=== PATIENT | male | born 1950 | race Hispanic/Latino ===

== ENCOUNTER → 2018-05-31 | Outpatient (CLI) | payer OTHER, MEDICARE | END | disposition home or self-care (01) | LOC: RAH 15:32 | PROVIDERS: ATTEND Urology | DX: L72.0 Epidermal cyst (principal) | CPT/HCPCS: 76870 ==

== ENCOUNTER → 2019-08-21 | Outpatient (CLI) | payer OTHER, MEDICARE | END | disposition home or self-care (01) | LOC: RAH 13:40 | PROVIDERS: ATTEND Urology | DX: K57.90 Diverticulosis of intestine, part unspecified, without perforation or abscess without bleeding (principal); N20.0 Calculus of kidney; I70.0 Atherosclerosis of aorta | CPT/HCPCS: 74176 ==

== ENCOUNTER 2021-02-16 15:55 | Inpatient (IN) | payer OTHER, MEDICARE ==
[~2021-02-16] VITALS: Ht 160 cm; Wt 80.7 kg
[2021-02-16] MEDS ORDERED: 0.9%NACL 1000ML 1,638 ML IV ONE (16:30)
[2021-02-16 16:37] LABS: APPEARANCE,URINE Turbid (CLEAR); BILIRUBIN,URINE Negative (NEGATIVE); COLOR,URINE Dark Yellow (YELLOW); GLUCOSE, URINE (UA) Negative (NEGATIVE); KETONES,URINE Trace mg/dL (NEGATIVE); LEUKOCYTE ESTERASE ,URINE Large (NEGATIVE); NITRATE,URINE Negative (NEGATIVE); OCCULT BLOOD,URINE Moderate (NEGATIVE); PROTEIN,URINE POS 2+ mg/dL (NEGATIVE)
[2021-02-16 16:38] LABS: BASOPHILS % (AUTO) 0.2 % (0.0-5.0); EOSINOPHILS % (AUTO) 0.1 % (0.0-8.0); HEMATOCRIT 31.6 % (42-54); LYMPHOCYTES % (AUTO) 1.3 % (21.0-51.0); MEAN CORPUSCULAR HEMOGLOBIN 31.6 pg (27.0-33.0); MEAN CORPUSCULAR VOLUME 98.8 fL (79-99); PLATELET COUNT (AUTO) 66 K/uL (130-400); RED CELL DISTRIBUTION WIDTH 15.3 % (11.0-15.5); WHITE BLOOD COUNT (AUTO) 19.2 K/uL (4.8-10.8)
[2021-02-16 16:50] LABS: BACTERIA,URINE Moderate /HPF (None Seen); MUCUS,URINE Few LPF (None Seen); SQUAMOUS EPITHELIAL CELL,UR Few /HPF (0-2); WBC,URINE 26-50 /HPF (0-1)
[2021-02-16 16:52] LABS: CREATININE 3.3 mg/dL (0.5-1.5); POTASSIUM 5.4 mmol/L (3.5-5.1)
[2021-02-16 16:56] LABS: ALBUMIN 2.7 g/dL (3.5-5.0); BILIRUBIN,TOTAL 0.4 mg/dL (0.2-1.0); TOTAL PROTEIN, SERUM 6.2 g/dL (6.0-8.3)
[2021-02-16] MEDS ORDERED: CEFEPIME HCL 1 GM VIAL IVP SCH ×2 (17:00→17:30)
[2021-02-16] MEDS ORDERED: LINEZOLID 600 MG/ISO-OSM 300 ML IV SCH ×2 (17:00→17:30)
[2021-02-16 17:08] LABS: B-TYPE NATRIURETIC PEPTIDE 935 pg/mL (0-100)
[2021-02-16 17:19] LABS: CRP QUANTITATIVE 241.3 mg/L (0.00-9.0)
[2021-02-16] MEDS ORDERED: PHARMACY COMMUNICATION MISC SCH (17:30)
[2021-02-16] MEDS ORDERED: ACETAMINOPHEN 325 MG TAB PO PRN (17:30)
[2021-02-16] MEDS ORDERED: ONDANSETRON 4MG INJ IVP PRN (17:30)
[2021-02-16] MEDS ORDERED: MYCOPHENOLATE PO (18:02)
[2021-02-16] MEDS ORDERED: INSU100I21 SQ (18:02)
[2021-02-16] MEDS ORDERED: MULT-1203 PO (18:02)
[2021-02-16] MEDS ORDERED: CALC-190 PO (18:02)
[2021-02-16] MEDS ORDERED: ALLO300T2 PO (18:02)
[2021-02-16] MEDS ORDERED: MONT-39 PO (18:02)
[2021-02-16] MEDS ORDERED: DICL35CA3 PO (18:02)
[2021-02-16] MEDS ORDERED: LOSA25TA41 PO (18:02)
[2021-02-16] MEDS ORDERED: TACR1GRA PO ×2 (18:02)
[2021-02-16] MEDS ORDERED: AMLO5TAB5 PO (18:02)
[2021-02-16] MEDS ORDERED: PANT40TA54 PO (18:02)
[2021-02-16] MEDS ORDERED: ASPI-1197 PO (18:02)
[2021-02-16] MEDS ORDERED: ROSU10TA22 PO (18:02)
[2021-02-16] MEDS ORDERED: FOLI1 PO (18:02)
[2021-02-16] MEDS ORDERED: ATOV750O2 PO (18:02)
[2021-02-16] MEDS ORDERED: PRED5TAB PO (18:02)
[2021-02-16] MEDS ORDERED: METO50TA18 PO (18:02)
[2021-02-16] MEDS ORDERED: OXYC10TA48 PO (18:02)
[2021-02-16] MEDS: FAMOTIDINE 20MG VIAL IV SCH (18:10)
[2021-02-16] MEDS: 0.9%NACL 1000ML 1,000 ML IV SCH (18:10)
[2021-02-16] MEDS: MEROPENEM 1 GM VIAL IVP SCH (18:22)
[2021-02-16] MEDS ORDERED: GLUCAGON 1MG KIT 1 MG ML IM PRN (18:30)
[2021-02-16] MEDS ORDERED: DEXTROSE 50%-WATER 50 ML DISP.SYRIN IV PRN (18:30)
[2021-02-16] MEDS ORDERED: KAYEXALATE 15GM/60ML PO ONE (18:30)
[2021-02-16] MEDS ORDERED: KAYEXALATE 15GM/60ML ONE (20:08)
[2021-02-16] MEDS: INSULIN HUMULIN R 100 UNIT/ML 3ML SQ SCH (20:38)
[2021-02-16 21:50] VITALS: BP 141/67
[2021-02-17] VITALS: BP 156/76
[2021-02-17] MEDS: MEROPENEM 1 GM VIAL IVP SCH ×3 (03:12→17:16)
[2021-02-17] MEDS: 0.9%NACL 1000ML 1,000 ML IV SCH ×3 (03:12→11:58)
[2021-02-17 04:00] VITALS: BP 146/77
[2021-02-17 04:23] LABS: BASOPHILS % (AUTO) 0.3 % (0.0-5.0); EOSINOPHILS % (AUTO) 0.1 % (0.0-8.0); HEMATOCRIT 31.8 % (42-54); LYMPHOCYTES % (AUTO) 2.1 % (21.0-51.0); MEAN CORPUSCULAR HEMOGLOBIN 32.1 pg (27.0-33.0); MEAN CORPUSCULAR HGB CONC 31.4 g/dL (32.0-36.0); MEAN CORPUSCULAR VOLUME 101.9 fL (79-99); MONOCYTES % (AUTO) 4.7 % (3.0-13.0); NEUTROPHILS % (AUTO) 90.5 % (40.0-77.0); PLATELET COUNT (AUTO) 59 K/uL (130-400); RED BLOOD CELL COUNT(AUTO) 3.12 MIL/uL (4.50-6.20); RED CELL DISTRIBUTION WIDTH 15.2 % (11.0-15.5); WHITE BLOOD COUNT (AUTO) 15.9 K/uL (4.8-10.8)
[2021-02-17 04:37] LABS: ALBUMIN 2.4 g/dL (3.5-5.0); BILIRUBIN,TOTAL 0.3 mg/dL (0.2-1.0); CREATININE 2.5 mg/dL (0.5-1.5)
[2021-02-17] MEDS: INSULIN HUMULIN R 100 UNIT/ML 3ML SQ SCH ×4 (07:30→21:00)
[2021-02-17 08:49] VITALS: BP 168/79
[2021-02-17] MEDS: ENOXAPARIN SODIUM 30 MG/0.3 ML SQ SCH (09:00)
[2021-02-17] MEDS ORDERED: [UNRECOGNIZED DRUG - OTHER] PO SCH (09:00)
[2021-02-17] MEDS ORDERED: LEVOFLOXACIN 750 MG/D5W 150 ML 150 ML IV SCH (09:00)
[2021-02-17] MEDS: FAMOTIDINE 20MG VIAL IV SCH (09:11)
[2021-02-17] MEDS: TACROLIMUS 1 MG CAPSULE PO SCH (09:11)
[2021-02-17] MEDS: MYCOPHENOLATE MOFETIL 250 MG CAPSULE PO SCH ×2 (09:11→21:12)
[2021-02-17] MEDS ORDERED: TAMSULOSIN HCL 0.4 MG CAP.ER.24H PO SCH (09:30)
[2021-02-17] MEDS ORDERED: PREDNISONE 5 MG TABLET PO SCH (09:30)
[2021-02-17] MEDS: TAMSULOSIN HCL 0.4 MG CAP.ER.24H PO SCH (11:54)
[2021-02-17 12:25] VITALS: BP 177/83
[2021-02-17 15:41] VITALS: BP 182/74
[2021-02-17] MEDS: DOXYCYCLINE 100MG+NS 250ML IV SCH (18:34)
[2021-02-17] MEDS: 0.9% NACL 250ML IVPB SCH (18:35)
[2021-02-17 20:00] VITALS: BP 151/82
[2021-02-17] MEDS ORDERED: TACROLIMUS 1.5 MG PO SCH (21:00)
[2021-02-17] MEDS: DEXAMETHASONE SOD PHOSPHATE 4 MG/ML 1ML VIAL IVP SCH (21:11)
[2021-02-17] MEDS: BACLOFEN 10 MG TABLET PO SCH (21:11)
[2021-02-17] MEDS: GABAPENTIN 100 MG CAPSULE PO SCH (21:12)
[2021-02-17] MEDS: METOPROLOL TARTRATE 50 MG TAB PO SCH (21:12)
[2021-02-17] MEDS: TACROLIMUS 0.5 MG CAPSULE PO SCH (21:18)
[2021-02-17] MEDS: OXYCODONE HCL 5 MG TAB PO PRN (21:27)
[2021-02-18] VITALS: BP 129/78
[2021-02-18] MEDS: MEROPENEM 1 GM VIAL IVP SCH ×2 (03:20→10:01)
[2021-02-18 04:00] VITALS: BP 129/58
[2021-02-18 05:22] LABS: BASOPHILS % (AUTO) 0.1 % (0.0-5.0); HEMATOCRIT 34.3 % (42-54); LYMPHOCYTES % (AUTO) 3.7 % (21.0-51.0); MEAN CORPUSCULAR HEMOGLOBIN 31.8 pg (27.0-33.0); MEAN CORPUSCULAR HGB CONC 32.4 g/dL (32.0-36.0); MEAN CORPUSCULAR VOLUME 98.3 fL (79-99); MONOCYTES % (AUTO) 3.7 % (3.0-13.0); PLATELET COUNT (AUTO) 66 K/uL (130-400); RED BLOOD CELL COUNT(AUTO) 3.49 MIL/uL (4.50-6.20); RED CELL DISTRIBUTION WIDTH 15.2 % (11.0-15.5); WHITE BLOOD COUNT (AUTO) 8.5 K/uL (4.8-10.8)
[2021-02-18 05:38] LABS: ALBUMIN 2.6 g/dL (3.5-5.0); BILIRUBIN,TOTAL 0.5 mg/dL (0.2-1.0); CREATININE 2.2 mg/dL (0.5-1.5); POTASSIUM 5.5 mmol/L (3.5-5.1); TOTAL PROTEIN, SERUM 6.7 g/dL (6.0-8.3)
[2021-02-18] MEDS: 0.9% NACL 250ML IVPB SCH ×2 (06:32→17:09)
[2021-02-18] MEDS: DOXYCYCLINE 100MG+NS 250ML IV SCH (06:32)
[2021-02-18] MEDS: INSULIN HUMULIN R 100 UNIT/ML 3ML SQ SCH ×4 (06:54→20:59)
[2021-02-18 07:30] VITALS: BP 161/78
[2021-02-18] MEDS: DEXAMETHASONE SOD PHOSPHATE 4 MG/ML 1ML VIAL IVP SCH ×2 (10:01→13:05)
[2021-02-18] MEDS: ENOXAPARIN SODIUM 30 MG/0.3 ML SQ SCH (10:01)
[2021-02-18] MEDS: ASPIRIN 81MG CHEW TAB PO SCH (10:02)
[2021-02-18] MEDS: MYCOPHENOLATE MOFETIL 250 MG CAPSULE PO SCH ×2 (10:02→21:02)
[2021-02-18] MEDS: TAMSULOSIN HCL 0.4 MG CAP.ER.24H PO SCH (10:02)
[2021-02-18] MEDS: FAMOTIDINE 20MG VIAL IV SCH (10:02)
[2021-02-18] MEDS: AMLODIPINE 5 MG TAB PO SCH (10:04)
[2021-02-18] MEDS: BACLOFEN 10 MG TABLET PO SCH ×3 (10:04→21:03)
[2021-02-18] MEDS: TACROLIMUS 1 MG CAPSULE PO SCH (10:04)
[2021-02-18] MEDS: ALLOPURINOL 300 MG TABLET PO SCH (10:05)
[2021-02-18] MEDS: METOPROLOL TARTRATE 50 MG TAB PO SCH ×2 (10:05→21:02)
[2021-02-18] MEDS: LIDOCAINE 5% TOPICAL PATCH TP SCH (10:05)
[2021-02-18] MEDS: GABAPENTIN 100 MG CAPSULE PO SCH ×2 (10:05→21:02)
[2021-02-18 11:00] VITALS: BP 162/80
[2021-02-18] MEDS ORDERED: CEPH500C2 PO (13:29)
[2021-02-18] MEDS ORDERED: CEFTRIAXONE 2GM VIAL IVP ONE (13:30)
[2021-02-18 16:00] VITALS: BP 158/79
[2021-02-18] MEDS: CEFTRIAXONE 2GM VIAL IVP SCH (17:11)
[2021-02-18 20:00] VITALS: BP 176/88
[2021-02-18] MEDS: TACROLIMUS 0.5 MG CAPSULE PO SCH (21:01)
[2021-02-18] MEDS: OXYCODONE HCL 5 MG TAB PO PRN (22:31)
[2021-02-18] MEDS ORDERED: KAYEXALATE 15GM/60ML ONE (23:54)
[2021-02-19] VITALS: BP 141/76
[2021-02-19] MEDS ORDERED: KAYEXALATE 15GM/60ML PO ONE ×2
[2021-02-19 04:00] VITALS: BP 129/67
[2021-02-19 04:30] LABS: BASOPHILS % (AUTO) 0.3 % (0.0-5.0); HEMATOCRIT 31.9 % (42-54); LYMPHOCYTES % (AUTO) 3.4 % (21.0-51.0); MEAN CORPUSCULAR HEMOGLOBIN 31.3 pg (27.0-33.0); MEAN CORPUSCULAR HGB CONC 31.7 g/dL (32.0-36.0); MEAN CORPUSCULAR VOLUME 98.8 fL (79-99); MONOCYTES % (AUTO) 5.4 % (3.0-13.0); NEUTROPHILS % (AUTO) 88.9 % (40.0-77.0); PLATELET COUNT (AUTO) 74 K/uL (130-400); RED BLOOD CELL COUNT(AUTO) 3.23 MIL/uL (4.50-6.20); RED CELL DISTRIBUTION WIDTH 14.8 % (11.0-15.5); WHITE BLOOD COUNT (AUTO) 7.7 K/uL (4.8-10.8)
[2021-02-19 04:47] LABS: ALBUMIN 2.4 g/dL (3.5-5.0); BILIRUBIN,TOTAL 0.3 mg/dL (0.2-1.0); CREATININE 2.2 mg/dL (0.5-1.5); POTASSIUM 5.6 mmol/L (3.5-5.1); TOTAL PROTEIN, SERUM 6.1 g/dL (6.0-8.3)
[2021-02-19] MEDS: 0.9% NACL 250ML IVPB SCH (06:00)
[2021-02-19] MEDS: INSULIN HUMULIN R 100 UNIT/ML 3ML SQ SCH ×2 (06:14→11:30)
[2021-02-19 07:30] VITALS: BP 175/84
[2021-02-19] MEDS ORDERED: SODI650T PO (07:36)
[2021-02-19] MEDS ORDERED: KAYEXALATE 15GM/60ML PO SCH (07:46)
[2021-02-19] MEDS: LIDOCAINE 5% TOPICAL PATCH TP SCH (08:10)
[2021-02-19] MEDS: BACLOFEN 10 MG TABLET PO SCH (08:11)
[2021-02-19] MEDS: ALLOPURINOL 300 MG TABLET PO SCH (08:11)
[2021-02-19] MEDS: ENOXAPARIN SODIUM 30 MG/0.3 ML SQ SCH (08:11)
[2021-02-19] MEDS: AMLODIPINE 5 MG TAB PO SCH (08:11)
[2021-02-19] MEDS: TACROLIMUS 1 MG CAPSULE PO SCH (08:12)
[2021-02-19] MEDS: MYCOPHENOLATE MOFETIL 250 MG CAPSULE PO SCH (08:12)
[2021-02-19] MEDS: SODIUM BICARBONATE 650 MG TAB PO SCH ×2 (08:12→12:28)
[2021-02-19] MEDS: ASPIRIN 81MG CHEW TAB PO SCH (08:12)
[2021-02-19] MEDS: METOPROLOL TARTRATE 50 MG TAB PO SCH (08:12)
[2021-02-19] MEDS: TAMSULOSIN HCL 0.4 MG CAP.ER.24H PO SCH (08:12)
[2021-02-19] MEDS: GABAPENTIN 100 MG CAPSULE PO SCH (08:14)
[2021-02-19 11:00] VITALS: BP 167/84
[2021-02-19] MEDS: CEFTRIAXONE 2GM VIAL IVP SCH (14:54)
== END 2021-02-19 16:20 | disposition home or self-care (01) | DRG 872 ==
LOC: EDH 15:55 → EDHIP 17:03 → 4CH 22:25
PROVIDERS: ADMIT Internal Medicine; ATTEND Internal Medicine
PROC: 5A09357 Assistance with Respiratory Ventilation, Less than 24 Consecutive Hours, Continuous Positive Airway Pressure (ICD-10-PCS; principal; 2021-02-17)
PROC: 5A09357 Assistance with Respiratory Ventilation, Less than 24 Consecutive Hours, Continuous Positive Airway Pressure (ICD-10-PCS; 2021-02-18)
DX: A41.51 Sepsis due to Escherichia coli [E. coli] (principal); N39.0 Urinary tract infection, site not specified; E87.1 Hypo-osmolality and hyponatremia; E44.0 Moderate protein-calorie malnutrition; N17.9 Acute kidney failure, unspecified; D84.9 Immunodeficiency, unspecified; N18.4 Chronic kidney disease, stage 4 (severe); Z16.29 Resistance to other single specified antibiotic; Z94.4 Liver transplant status; Z94.2 Lung transplant status; Z68.29 Body mass index [BMI] 29.0-29.9, adult; B96.20 Unspecified Escherichia coli [E. coli] as the cause of diseases classified elsewhere; M10.9 Gout, unspecified; D64.9 Anemia, unspecified; D69.6 Thrombocytopenia, unspecified; E11.22 Type 2 diabetes mellitus with diabetic chronic kidney disease; I12.9 Hypertensive chronic kidney disease with stage 1 through stage 4 chronic kidney disease, or unspecified chronic kidney disease; E66.9 Obesity, unspecified; E87.5 Hyperkalemia; G89.4 Chronic pain syndrome; I25.10 Atherosclerotic heart disease of native coronary artery without angina pectoris; N40.0 Benign prostatic hyperplasia without lower urinary tract symptoms; N41.9 Inflammatory disease of prostate, unspecified; Z68.31 Body mass index [BMI] 31.0-31.9, adult; Z79.4 Long term (current) use of insulin; Z90.49 Acquired absence of other specified parts of digestive tract; Z83.3 Family history of diabetes mellitus
CPT/HCPCS: 36415; 71045; 76770; 80053; 80197; 81001; 82948; 83605; 83880; 84132; 84145; 85025; 86140; 87040; 87077; 87088; 87186; 94660; G0378; J0692; J0696; J1100; J1610; J1650; J1815; J2185; J3490; J7050; J7507; J7512; J7517

== ENCOUNTER 2021-02-26 10:48 | Inpatient (IN) | payer OTHER, MEDICARE ==
[~2021-02-26] VITALS: Ht 160 cm; Wt 73.5 kg
[~2021-02-26 10:48] MED LIST: ALLO300T2 PO; AMLO5TAB5 PO; ASPI-1197 PO; ATOV750O2 PO; CALC-190 PO; CEPH500C2 PO; FOLI1 PO; INSU100I21 SQ; LOSA25TA41 PO; METO50TA18 PO; MONT-39 PO; MULT-1203 PO; MYCOPHENOLATE PO; OXYC10TA48 PO; PANT40TA54 PO; PRED5TAB PO; ROSU10TA22 PO; SODI650T PO; TACR1GRA PO
[2021-02-26 11:30] LABS: BASOPHILS % (AUTO) 0.1 % (0.0-5.0); EOSINOPHILS % (AUTO) 0.1 % (0.0-8.0); HEMATOCRIT 30.4 % (42-54); MEAN CORPUSCULAR HEMOGLOBIN 31.5 pg (27.0-33.0); MEAN CORPUSCULAR HGB CONC 32.2 g/dL (32.0-36.0); MEAN CORPUSCULAR VOLUME 97.7 fL (79-99); MONOCYTES % (AUTO) 7.3 % (3.0-13.0); NEUTROPHILS % (AUTO) 86.5 % (40.0-77.0); PLATELET COUNT (AUTO) 204 K/uL (130-400); RED BLOOD CELL COUNT(AUTO) 3.11 MIL/uL (4.50-6.20); RED CELL DISTRIBUTION WIDTH 14.8 % (11.0-15.5); WHITE BLOOD COUNT (AUTO) 15.3 K/uL (4.8-10.8)
[2021-02-26 11:31] LABS: APPEARANCE,URINE Clear (CLEAR); BILIRUBIN,URINE Negative (NEGATIVE); COLOR,URINE Yellow (YELLOW); GLUCOSE, URINE (UA) TRACE mg/dL (NEGATIVE); KETONES,URINE Negative (NEGATIVE); LEUKOCYTE ESTERASE ,URINE Negative (NEGATIVE); NITRATE,URINE Negative (NEGATIVE); OCCULT BLOOD,URINE Negative (NEGATIVE); PROTEIN,URINE POS 1+ mg/dL (NEGATIVE); UROBILINOGEN,URINE 0.2 mg/dL (0.2-1.0)
[2021-02-26 11:51] LABS: BACTERIA,URINE Few /HPF (None Seen); RBC,URINE 0-1 /HPF (0-1); SQUAMOUS EPITHELIAL CELL,UR Rare /HPF (0-2)
[2021-02-26 11:59] LABS: CREATININE 1.6 mg/dL (0.5-1.5)
[2021-02-26 12:03] LABS: ALBUMIN 2.9 g/dL (3.5-5.0); BILIRUBIN,TOTAL 0.8 mg/dL (0.2-1.0); TOTAL PROTEIN, SERUM 6.1 g/dL (6.0-8.3)
[2021-02-26] MEDS ORDERED: ZOSYN 3.375GM+NS 50ML 3.38 GM in 0.9%NACL 50ML 50 ML IV STA (14:03)
[2021-02-26] MEDS ORDERED: NITROGLYCERIN 0.4 MG SL TAB SL PRN (15:00)
[2021-02-26] MEDS ORDERED: HYDRALAZINE 20MG/ML VIAL IV PRN (15:00)
[2021-02-26] MEDS ORDERED: ACETAMINOPHEN 325 MG TAB PO PRN ×2 (15:00)
[2021-02-26] MEDS ORDERED: ZOSYN 3.375GM +NS 50ML IV SCH (15:00)
[2021-02-26] MEDS ORDERED: LACTULOSE 20 GM/30 ML UDCUP PO PRN (15:00)
[2021-02-26] MEDS ORDERED: ONDANSETRON 4MG INJ IV PRN (15:00)
[2021-02-26] MEDS ORDERED: VANCOMYCIN PROTOCOL PER PHARMACY IV PRN (15:00)
[2021-02-26] MEDS ORDERED: COMPOUND IV REFRIGERATED 1 EACH IVSOLN MISC PRN (15:30)
[2021-02-26 16:12] LABS: INR 1.14 (0.85-1.15); PROTHROMBIN TIME 12.3 SEC (9.6-11.6)
[2021-02-26] MEDS ORDERED: VANCOMYCIN 1G/250ML KIT 250 ML IV ONE (16:12)
[2021-02-26 16:13] LABS: PARTIAL THROMBOPLASTIN TIME 28.2 SEC (26.3-35.5)
[2021-02-26] MEDS: 0.9%NACL 1000ML 1,000 ML IV SCH (16:26)
[2021-02-26] MEDS: VANCOMYCIN 1.25GM/NS 250ML IVPB SCH ×2 (16:26)
[2021-02-26] MEDS: FAMOTIDINE 20MG VIAL IV SCH (16:26)
[2021-02-26] MEDS: MORPHINE 2 MG SYG IV PRN ×2 (17:48→18:52)
[2021-02-26] MEDS: CEFEPIME HCL 1 GM VIAL IVP SCH (18:51)
[2021-02-26] MEDS ORDERED: ZOSYN 3.375GM+NS 50ML 50 ML IV SCH (21:00)
[2021-02-27] VITALS (7 sets, daily range): BP systolic 120–140; BP diastolic 58–64
[2021-02-27] MEDS: 0.9%NACL 1000ML 1,000 ML IV SCH ×2 (01:15→11:00)
[2021-02-27] MEDS: CEFEPIME HCL 1 GM VIAL IVP SCH ×2 (05:52→16:43)
[2021-02-27] MEDS: INSULIN HUMULIN R 100 UNIT/ML 3ML SQ SCH ×4 (06:13→21:10)
[2021-02-27] MEDS: FAMOTIDINE 20MG VIAL IV SCH (08:47)
[2021-02-27] MEDS: ENOXAPARIN SODIUM 40 MG/0.4 ML SYRINGE SQ SCH (08:51)
[2021-02-27] MEDS ORDERED: AMLODIPINE 5 MG TAB PO SCH (09:00)
[2021-02-27] MEDS ORDERED: OXYCODONE HCL 5 MG TAB PO PRN (09:30)
[2021-02-27 10:00] LABS: BASOPHILS % (AUTO) 0.1 % (0.0-5.0); EOSINOPHILS % (AUTO) 0.4 % (0.0-8.0); HEMATOCRIT 27.8 % (42-54); LYMPHOCYTES % (AUTO) 6.3 % (21.0-51.0); MEAN CORPUSCULAR HEMOGLOBIN 30.9 pg (27.0-33.0); MEAN CORPUSCULAR HGB CONC 30.9 g/dL (32.0-36.0); MONOCYTES % (AUTO) 11.3 % (3.0-13.0); NEUTROPHILS % (AUTO) 80.3 % (40.0-77.0); PLATELET COUNT (AUTO) 204 K/uL (130-400); RED BLOOD CELL COUNT(AUTO) 2.78 MIL/uL (4.50-6.20); RED CELL DISTRIBUTION WIDTH 14.7 % (11.0-15.5); WHITE BLOOD COUNT (AUTO) 11.4 K/uL (4.8-10.8)
[2021-02-27 10:32] LABS: ALBUMIN 2.3 g/dL (3.5-5.0); BILIRUBIN,TOTAL 0.5 mg/dL (0.2-1.0); CREATININE 1.4 mg/dL (0.5-1.5); TOTAL PROTEIN, SERUM 5.5 g/dL (6.0-8.3)
[2021-02-27 11:05] LABS: ERYTHROCYTE SEDIMENTATION RATE 73 MM/HR (0-20)
[2021-02-27] MEDS: ATORVASTATIN 20 MG TABLET PO SCH (12:42)
[2021-02-27] MEDS: VANCOMYCIN 1.25GM/NS 250ML IVPB SCH ×2 (16:43)
[2021-02-27] MEDS ORDERED: COLCHICINE 0.6 MG TABLET PO SCH ×2 (19:00→19:30)
[2021-02-27] MEDS: TACROLIMUS 0.5 MG CAPSULE PO SCH (21:00)
[2021-02-27] MEDS: PANTOPRAZOLE 40 MG TAB DR PO SCH (21:01)
[2021-02-27] MEDS: METOPROLOL TARTRATE 50 MG TAB PO SCH (21:01)
[2021-02-27] MEDS: MYCOPHENOLATE MOFETIL 250 MG CAPSULE PO SCH (21:01)
[2021-02-28 04:00] VITALS: BP 138/65
[2021-02-28] MEDS: CEFEPIME HCL 1 GM VIAL IVP SCH ×2 (06:24→17:05)
[2021-02-28] MEDS: INSULIN HUMULIN R 100 UNIT/ML 3ML SQ SCH ×4 (06:29→22:12)
[2021-02-28 08:00] VITALS: BP 150/70
[2021-02-28] MEDS ORDERED: PREDNISONE 5 MG TABLET PO SCH (09:00)
[2021-02-28] MEDS ORDERED: CA 600MG+VIT D 400 UNIT TAB 1 TAB TABLET PO SCH (09:00)
[2021-02-28] MEDS ORDERED: MONTELUKAST SODIUM 10 MG TAB PO SCH (09:00)
[2021-02-28] MEDS ORDERED: AMLODIPINE 5 MG TAB PO SCH (09:00)
[2021-02-28] MEDS ORDERED: INSULIN GLARGINE 100 UNITS/ML 10 ML VIAL SQ SCH ×2 (09:00→21:00)
[2021-02-28] MEDS: MYCOPHENOLATE MOFETIL 250 MG CAPSULE PO SCH ×2 (09:40→22:05)
[2021-02-28] MEDS: ASPIRIN 81MG CHEW TAB PO SCH (09:40)
[2021-02-28] MEDS: FAMOTIDINE 20MG VIAL IV SCH (09:40)
[2021-02-28] MEDS: FOLIC ACID 1 MG TABLET PO SCH (09:41)
[2021-02-28] MEDS: COLCHICINE 0.6 MG TABLET PO SCH (09:41)
[2021-02-28] MEDS: PREDNISONE 10 MG TABLET PO SCH (09:41)
[2021-02-28] MEDS: LOSARTAN 25 MG TABLET PO SCH (09:41)
[2021-02-28] MEDS: METOPROLOL TARTRATE 50 MG TAB PO SCH ×2 (09:42→22:05)
[2021-02-28] MEDS: ATOVAQUONE 1500 MG PO SCH (09:42)
[2021-02-28] MEDS: MULTIVITAMIN TABLET PO SCH (09:42)
[2021-02-28] MEDS: ALLOPURINOL 300 MG TABLET PO SCH (09:44)
[2021-02-28] MEDS: TACROLIMUS 1 MG CAPSULE PO SCH (09:44)
[2021-02-28] MEDS: CA 600MG+VIT D 400 UNIT TAB 1 TAB TABLET PO SCH (09:45)
[2021-02-28] MEDS: ENOXAPARIN SODIUM 40 MG/0.4 ML SYRINGE SQ SCH (09:46)
[2021-02-28] MEDS ORDERED: MONTELUKAST SODIUM 10 MG TAB PO PRN (10:30)
[2021-02-28 12:00] VITALS: BP 133/67
[2021-02-28] MEDS: ATORVASTATIN 20 MG TABLET PO SCH ×2 (12:00→22:06)
[2021-02-28 16:00] VITALS: BP 136/89
[2021-02-28] MEDS: VANCOMYCIN 1.25GM/NS 250ML IVPB SCH ×2 (16:52)
[2021-02-28 17:43] LABS: BASOPHILS % (AUTO) 0.2 % (0.0-5.0); HEMATOCRIT 31.8 % (42-54); LYMPHOCYTES % (AUTO) 3.8 % (21.0-51.0); MEAN CORPUSCULAR HEMOGLOBIN 31.5 pg (27.0-33.0); MEAN CORPUSCULAR HGB CONC 31.4 g/dL (32.0-36.0); MEAN CORPUSCULAR VOLUME 100.3 fL (79-99); MONOCYTES % (AUTO) 2.2 % (3.0-13.0); NEUTROPHILS % (AUTO) 92.7 % (40.0-77.0); PLATELET COUNT (AUTO) 242 K/uL (130-400); RED BLOOD CELL COUNT(AUTO) 3.17 MIL/uL (4.50-6.20); RED CELL DISTRIBUTION WIDTH 14.5 % (11.0-15.5); WHITE BLOOD COUNT (AUTO) 6.3 K/uL (4.8-10.8)
[2021-02-28 17:59] LABS: CREATININE 1.5 mg/dL (0.5-1.5); CRP QUANTITATIVE 162.3 mg/L (0.00-9.0); POTASSIUM 5.2 mmol/L (3.5-5.1); URIC ACID 2.6 mg/dL (2.6-7.2)
[2021-02-28 19:06] LABS: ERYTHROCYTE SEDIMENTATION RATE 110 MM/HR (0-20)
[2021-02-28 19:55] VITALS: BP 141/71
[2021-02-28] MEDS: TACROLIMUS 0.5 MG CAPSULE PO SCH (22:05)
[2021-02-28] MEDS: AMLODIPINE 5 MG TAB PO SCH (22:05)
[2021-02-28] MEDS: PANTOPRAZOLE 40 MG TAB DR PO SCH (22:06)
[2021-02-28 23:25] VITALS: BP 123/67
[2021-03-01 04:20] VITALS: BP 114/63
[2021-03-01] MEDS: CEFEPIME HCL 1 GM VIAL IVP SCH ×2 (05:29→16:41)
[2021-03-01] MEDS: INSULIN HUMULIN R 100 UNIT/ML 3ML SQ SCH ×4 (05:40→21:04)
[2021-03-01 07:51] VITALS: BP 128/69
[2021-03-01] MEDS: ENOXAPARIN SODIUM 40 MG/0.4 ML SYRINGE SQ SCH (08:47)
[2021-03-01] MEDS: TACROLIMUS 1 MG CAPSULE PO SCH (08:50)
[2021-03-01] MEDS: ASPIRIN 81MG CHEW TAB PO SCH (08:50)
[2021-03-01] MEDS: ALLOPURINOL 300 MG TABLET PO SCH (08:50)
[2021-03-01] MEDS: CA 600MG+VIT D 400 UNIT TAB 1 TAB TABLET PO SCH (08:50)
[2021-03-01] MEDS: MYCOPHENOLATE MOFETIL 250 MG CAPSULE PO SCH ×2 (08:50→21:01)
[2021-03-01] MEDS: FOLIC ACID 1 MG TABLET PO SCH (08:51)
[2021-03-01] MEDS: METOPROLOL TARTRATE 50 MG TAB PO SCH ×2 (08:51→21:01)
[2021-03-01] MEDS: LOSARTAN 25 MG TABLET PO SCH (08:51)
[2021-03-01] MEDS: MULTIVITAMIN TABLET PO SCH (08:51)
[2021-03-01] MEDS: PREDNISONE 10 MG TABLET PO SCH (08:51)
[2021-03-01] MEDS: COLCHICINE 0.6 MG TABLET PO SCH (08:51)
[2021-03-01] MEDS: FAMOTIDINE 20MG VIAL IV SCH (08:56)
[2021-03-01] MEDS: ATOVAQUONE 1500 MG PO SCH (08:59)
[2021-03-01] MEDS: PREDNISONE 20 MG TABLET PO SCH (10:00)
[2021-03-01 11:33] VITALS: BP 122/65
[2021-03-01 16:00] VITALS: BP 123/64
[2021-03-01 20:36] VITALS: BP 155/64
[2021-03-01] MEDS ORDERED: INSULIN GLARGINE 100 UNITS/ML 10 ML VIAL SQ SCH ×2 (21:00)
[2021-03-01] MEDS: TACROLIMUS 0.5 MG CAPSULE PO SCH (21:01)
[2021-03-01] MEDS: PANTOPRAZOLE 40 MG TAB DR PO SCH (21:01)
[2021-03-01] MEDS: AMLODIPINE 5 MG TAB PO SCH (21:01)
[2021-03-01] MEDS: ATORVASTATIN 20 MG TABLET PO SCH (21:01)
[2021-03-01] MEDS: MORPHINE 2 MG SYG IV PRN (21:40)
[2021-03-02 00:48] VITALS: BP 117/60
[2021-03-02] MEDS: CEFEPIME HCL 1 GM VIAL IVP SCH (04:34)
[2021-03-02] MEDS: MORPHINE 2 MG SYG IV PRN (04:45)
[2021-03-02 04:49] VITALS: BP 138/60
[2021-03-02] MEDS: INSULIN HUMULIN R 100 UNIT/ML 3ML SQ SCH ×2 (05:55→11:00)
[2021-03-02 07:30] VITALS: BP 143/69
[2021-03-02] MEDS: FAMOTIDINE 20MG VIAL IV SCH (08:50)
[2021-03-02] MEDS: FOLIC ACID 1 MG TABLET PO SCH (08:50)
[2021-03-02] MEDS: MYCOPHENOLATE MOFETIL 250 MG CAPSULE PO SCH (08:51)
[2021-03-02] MEDS: MULTIVITAMIN TABLET PO SCH (08:51)
[2021-03-02] MEDS: LOSARTAN 25 MG TABLET PO SCH (08:51)
[2021-03-02] MEDS: METOPROLOL TARTRATE 50 MG TAB PO SCH (08:51)
[2021-03-02] MEDS: ASPIRIN 81MG CHEW TAB PO SCH (08:51)
[2021-03-02] MEDS: TACROLIMUS 1 MG CAPSULE PO SCH (08:51)
[2021-03-02] MEDS: PREDNISONE 20 MG TABLET PO SCH (08:51)
[2021-03-02] MEDS: ENOXAPARIN SODIUM 40 MG/0.4 ML SYRINGE SQ SCH (08:52)
[2021-03-02] MEDS: COLCHICINE 0.6 MG TABLET PO SCH (08:52)
[2021-03-02] MEDS: ALLOPURINOL 300 MG TABLET PO SCH (08:52)
[2021-03-02] MEDS: CA 600MG+VIT D 400 UNIT TAB 1 TAB TABLET PO SCH (08:58)
[2021-03-02] MEDS: ATOVAQUONE 1500 MG PO SCH (08:58)
[2021-03-02] MEDS ORDERED: DOXY100C5 PO (09:02)
[2021-03-02] MEDS ORDERED: COLC0.6T73 PO (09:02)
[2021-03-02 09:17] LABS: HEMATOCRIT 29.8 % (42-54); MEAN CORPUSCULAR HEMOGLOBIN 31.8 pg (27.0-33.0); MEAN CORPUSCULAR HGB CONC 31.5 g/dL (32.0-36.0); MEAN CORPUSCULAR VOLUME 100.7 fL (79-99); RED BLOOD CELL COUNT(AUTO) 2.96 MIL/uL (4.50-6.20); RED CELL DISTRIBUTION WIDTH 14.3 % (11.0-15.5); WHITE BLOOD COUNT (AUTO) 6.1 K/uL (4.8-10.8)
[2021-03-02 09:27] LABS: CREATININE 1.6 mg/dL (0.5-1.5); CRP QUANTITATIVE 37.1 mg/L (0.00-9.0); POTASSIUM 5.3 mmol/L (3.5-5.1)
[2021-03-02] MEDS ORDERED: KAYEXALATE 15GM/60ML PO SCH (11:00)
[2021-03-02 11:17] VITALS: BP 141/72
== END 2021-03-02 14:11 | disposition home or self-care (01) | DRG 872 ==
LOC: EDH 10:48 → EDHIP 14:59 → 4CH 02-27 00:31
PROVIDERS: ADMIT Internal Medicine; ATTEND Internal Medicine
DX: A41.9 Sepsis, unspecified organism (principal); L03.116 Cellulitis of left lower limb; N39.0 Urinary tract infection, site not specified; E44.0 Moderate protein-calorie malnutrition; Z94.2 Lung transplant status; N17.9 Acute kidney failure, unspecified; D84.9 Immunodeficiency, unspecified; N18.30 Chronic kidney disease, stage 3 unspecified; E11.22 Type 2 diabetes mellitus with diabetic chronic kidney disease; Z20.822 Contact with and (suspected) exposure to COVID-19; E78.5 Hyperlipidemia, unspecified; I12.9 Hypertensive chronic kidney disease with stage 1 through stage 4 chronic kidney disease, or unspecified chronic kidney disease; I25.10 Atherosclerotic heart disease of native coronary artery without angina pectoris; H40.2290 Chronic angle-closure glaucoma, unspecified eye, stage unspecified; M10.072 Idiopathic gout, left ankle and foot; E78.00 Pure hypercholesterolemia, unspecified; M06.9 Rheumatoid arthritis, unspecified; Z68.28 Body mass index [BMI] 28.0-28.9, adult; Z79.4 Long term (current) use of insulin; Z85.118 Personal history of other malignant neoplasm of bronchus and lung; Z90.49 Acquired absence of other specified parts of digestive tract
CPT/HCPCS: 36415; 80048; 80053; 80202; 81001; 82550; 82948; 83605; 83880; 84145; 84484; 84550; 85025; 85027; 85378; 85610; 85651; 85730; 86140; 87040; 87088; 87635; 93005; 93971; G0378; J0692; J1650; J1815; J3370; J3490; J7050; J7507; J7512; J7517

== ENCOUNTER → 2022-01-28 | Outpatient (CLI) | payer OTHER, MEDICARE ==
[~2022-01-28] MED LIST changes: -CEPH500C2 PO; +COLC0.6T73 PO; +DOXY100C5 PO; -SODI650T PO
== END | disposition home or self-care (01) ==
LOC: RAH 09:22
PROVIDERS: ATTEND Internal Medicine
DX: K21.9 Gastro-esophageal reflux disease without esophagitis (principal); R10.13 Epigastric pain; R11.0 Nausea
CPT/HCPCS: 74240